=== PATIENT | male | born 1950 | race Caucasian/White ===

== ENCOUNTER 2024-07-29 01:23 | Emergency (ER) | payer MEDICARE, OTHER, SELFPAY ==
[2024-07-29] VITALS (7 sets, daily range): BP systolic 147–159; BP diastolic 75–86
[2024-07-29 01:42] LABS: % Basophils 0.2 % (0-2); % Eosinophils 0.2 % (0-6); % Immature Granulocytes 0.3 % (0-0.5); % Lymphocytes 15.1 % (20.5-51.1); % Monocytes 3.7 % (1.7-9.3); % Neutrophils 80.5 % (42.2-75.2); Absolute Lymphocytes 1.7 10^3/uL (1.2-3.4); Absolute Monocytes 0.4 10^3/uL (0.1-0.6); Hematocrit 41.5 % (39.0-52.0); Hemoglobin 14.6 g/dL (13.0-18.0); Mean Corp Hgb Conc. 35.2 g/dL (33.0-37.0); Mean Corpuscular Hgb 31.3 pg (27.0-31.0); Mean Corpuscular Volume 89.1 fL (80.0-94.0); Mean Platelet Volume 9.9 fL (7.4-10.4); Nucleated Red Blood Cells % 0 % (-); Platelet Count 219 10^3/uL (130-400); Red Blood Cell Count 4.66 10^6/uL (4.70-6.10); Red Cell Dist. Width 13.1 % (11.5-14.5); White Blood Cell Count 11.2 10^3/uL (4.8-10.8)
[2024-07-29] MEDS: NSS 1000 IV (01:51)
[2024-07-29 02:00] LABS: ALT (SGPT) 22 U/L (0-50); AST (SGOT) 25 U/L (17-59); Albumin 4.7 g/dl (3.5-5.0); Alkaline Phosphatase 54 U/L (38-126); Blood Urea Nitrogen 18 mg/dl (9-20); Calcium 9.6 mg/dl (8.4-10.2); Carbon Dioxide 18 mmol/L (22-30); Chloride 110 mmol/L (98-107); Glucose 176 mg/dl (70-99); Potassium 3.7 mmol/L (3.5-5.1); Sodium 139 mmol/L (135-145); Total Protein 6.9 g/dl (6.3-8.2); eGFR > 60.00
[2024-07-29 02:11] LABS: Troponin I < 0.012 ng/ml
--- NOTE | 2024-07-29 02:49 | ED.GENMED ---
History of Present Illness
General
Chief Complaint: Dizziness
Time Seen by Provider: 07/29/24 02:05
History of Present Illness
History of Present Illness:
74-year-old male without significant past medical history presenting for dizziness. Patient reports dizziness started this afternoon. Symptoms are worse with any type of head movement and eye movement. Describes the dizziness as spinning. Does
report similar symptoms several years ago, suspected vertigo, however went away on its own. Denies any fall or trauma. Denies visual changes. Denies weakness or numbness to his extremities. Reports nausea and vomiting, received Zofran en route
by medics. Denies abdominal pain. Denies additional medical complaints
Past History
Past History
ED Past Medical History: Hypercholesterolemia
ED Past Surgical History: Other (neck surgery for salivaary gland)
Social History
Tobacco: Non-smoker
Drug: None
Personal:
Living: with family
Family History
Family History: Other
Phy Exam
Physical Exam
Physical Exam:
General: Well-appearing, no clinical signs of dehydration, nontoxic and in no acute distress
HEENT: protecting airway, bilateral horizontal nystagmus, more prominent when looking toward the right. Normal TMs bilaterally
Neck: appears supple
CV: Normal heart rate, regular rhythm
Resp: No accessory muscle use, no increased work of breathing, lungs clear to auscultation bilaterally
Abd: No distention
Extremities: No deformities, no swelling, no erythema
Neuro: alert, no focal neurologic deficit
: deferred
Rectal: deferred
Psych: Normal affect
Skin: Intact
Course
Orders/Labs/Results
Orders:
Orders
07/29/24 01:34
Electrocardiogram (*1) Urgent
Reason for Study: Vertigo / Dizzy
EKG- Treatment ONCE
0.9% Sodium Chloride 1000 ml [Nss] 1,000 ml IV BOLUS
07/29/24 01:36
CMP [Comprehensive Metabolic Panel] Urgent
Complete Blood Count/With Diff Urgent
Troponin I Urgent
07/29/24 02:41
CT Head W/o Iv Contrast Urgent
Comment:
Reason For Exam: dizziness
0.9% Sodium Chloride 1000 ml [Nss] 1,000 ml IV BOLUS
Meclizine [Antivert] 25 mg PO NOW STA
Metoclopramide [Reglan] 5 mg IV NOW STA
Abnormal Lab Results
07/29/24
01:36
WBC 11.2 H 10^3/uL
(4.8-10.8)
RBC 4.66 L 10^6/uL
(4.70-6.10)
MCH 31.3 H pg
(27.0-31.0)
Absolute Neuts (auto) 9.0 H 10^3/uL
(1.4-6.5)
Neutrophils % 80.5 H %
(42.2-75.2)
Lymphocytes % 15.1 L %
(20.5-51.1)
Chloride 110 H mmol/L
(98-107)
Carbon Dioxide 18 L mmol/L
(22-30)
Glucose 176 H mg/dl
(70-99)
07/29/24 01:36
07/29/24 01:36
Vital Signs
Initial and Last Documented VS:
Initial Vital Signs
Temp Pulse Resp BP Pulse Ox
97.6 F 71 20 159/85 100
07/29/24 01:27 07/29/24 01:27 07/29/24 01:27 07/29/24 01:27 07/29/24 01:27
Last Documented Vital Signs
Temp Pulse Resp BP Pulse Ox
97.6 F 70 25 147/75 98
07/29/24 01:27 07/29/24 04:00 07/29/24 01:45 07/29/24 04:00 07/29/24 04:00
MDM/Problems Addressed
MDM/Problems Addressed:
74-year-old male presenting to the emergency department for acute onset of dizziness this afternoon. Vital signs on arrival are significant for mild hypertension.
On exam patient is resting comfortably, no acute distress or discomfort. Patient appears acutely symptomatic, is closing his eyes in the room, with symptoms reproduced with any ocular or head movements. Ultimately suspect BPPV, horizontal
nystagmus bilaterally. No focal neurologic deficits on exam with lower suspicion for central neurologic process. EKG obtained on arrival, no arrhythmia, no ischemia without concern for cardiac pathology. Plan for screening laboratory analysis and
CT brain imaging given patient's age. For therapeutics, patient administered fluids, Reglan, meclizine. Will reassess for improvement.
05:00 -patient's labs are unremarkable. CT brain is negative for acute process. I reassessed the patient is reporting symptom improvement. He is sleeping and rest. Will call patient to continue to sleep with plan for ambulation and discharged
home with continued supportive therapy outpatient.
*Pulse Oximetry
SaO2: 98
Oxygen Mode of Delivery: Room air
*EKG
Interpreted by ED Provider?: Yes
EKG Intrepretation Date: 07/29/24
EKG Intrepretation Time: 02:54
Interpretation: normal
Heart Rate: 61
Rate: normal
Rhythm: sinus
[place]: normal axis
Interval: normal interval
QRS Pattern: normal QRS
Ischemia: no ischemia
*Critical Care Note
Total Time (30-74mins, 75-104mins- exclusive of procedures): Not Applicable
ED Attending Note
-
Portions of this chart may have been created with voice recognition software.� Occasional wrong word or��sound alike� substitutions may have occurred due to the inherent limitations of voice recognition software.
Discharge Plan
Departure
Prescriptions:
No Action
atorvastatin 20 MG tablet
20 mg PO HS
aspirin [Sammy Chewable Aspirin] 81 MG tablet,chewable
81 mg PO HS
doxycycline hyclate 100 MG capsule
100 mg PO Q12 7 Days Qty: 13 0RF
hydrocortisone valerate 15 GM ointment
1 applic TP BID 14 Days Qty: 1 0RF
Rx Instructions:
Apply to the rash on your back twice a day for 14 days
Referrals:
Zainab Butterfield MD [Family Provider, Internal Medicine]
Interventions
Interventions:
*Risk Screen - Suicide Last Done: 07/29/24 02:02
*General Assessment Last Done: 07/29/24 02:02
*Neglect/Abuse Screening Last Done: 07/29/24 02:02
*ED- Fall Risk Assessment Last Done: 07/29/24 02:02
*ED COVID-19 Vaccine History Last Done: 07/29/24 02:02
ED- Neurological Assessment Last Done: 07/29/24 02:02
Discharge Date and Time
Print Language: TANZANIAN
[2024-07-29] MEDS: REGLAN 5 MG IV (02:55)
[2024-07-29] MEDS: ANTIVERT 25 MG PO (02:55)
== END 2024-07-29 07:29 | disposition home or self-care (01) ==
LOC: EMR 01:23
PROVIDERS: EMERGENCY PHYSICIAN Student in an Organized Health Care Education/Training Program; FAMILY PHYSICIAN Internal Medicine
DX: H81.10 Benign paroxysmal vertigo, unspecified ear (principal); I10 Essential (primary) hypertension; E78.00 Pure hypercholesterolemia, unspecified; R11.2 Nausea with vomiting, unspecified
CPT/HCPCS: 96374; 99284; 70450; 80053; 84484; 85025; 93005

== ENCOUNTER 2024-08-26 09:20 | Outpatient (RCR) | payer MEDICARE, OTHER, SELFPAY | END 2024-08-26 23:59 | disposition home or self-care (01) | LOC: RPT 09:20 | PROVIDERS: ATTENDING PHYSICIAN Internal Medicine | DX: R42 Dizziness and giddiness (principal); Z73.6 Limitation of activities due to disability | CPT/HCPCS: 97161 ==